=== PATIENT | female | born 1975 ===

== ENCOUNTER 2019-11-25 10:33 | Emergency (ER) | payer OTHER ==
[~2019-11-25] VITALS: Ht 170.2 cm; Wt 95.3 kg
== END 2019-11-25 14:05 | disposition home or self-care (01) ==
LOC: ER 10:33
DX: S62.654A Nondisplaced fracture of middle phalanx of right ring finger, initial encounter for closed fracture (principal); W22.8XXA Striking against or struck by other objects, initial encounter; Y93.B2 Activity, push-ups, pull-ups, sit-ups; Y92.018 Other place in single-family (private) house as the place of occurrence of the external cause; Y99.8 Other external cause status

== ENCOUNTER 2019-12-17 06:10 | Day surgery (SDC) | payer OTHER | END 2019-12-17 12:25 | disposition home or self-care (01) | LOC: CIR.AMB 06:10 | PROVIDERS: ATTEND Orthopaedic Surgery | DX: S62.622A Displaced fracture of middle phalanx of right middle finger, initial encounter for closed fracture (principal); Z20.828 Contact with and (suspected) exposure to other viral communicable diseases ==